=== PATIENT | male | born 1965 | race Native Hawaiian/Other Pacific Islander ===

== ENCOUNTER 2018-08-21 09:58 | Outpatient (CLI) | payer OTHER | END 2018-08-21 19:17 | disposition home or self-care (01) | LOC: RAD 09:58 | DX: R06.02 Shortness of breath (principal) ==

== ENCOUNTER 2019-09-05 09:45 | Day surgery (SDC) | payer OTHER ==
[2019-09-05 12:26] LABS: PLATELET COUNT 252 K/uL (142-355)
[2019-09-05 12:36] LABS: POTASSIUM 3.6 mmol/L (3.6-5.2)
== END 2019-09-05 13:35 | disposition home or self-care (01) ==
LOC: OR 09:45
PROVIDERS: Internal Medicine Gastroenterology
PROC: 0DB38ZZ Excision of Lower Esophagus, Via Natural or Artificial Opening Endoscopic (ICD-10-PCS; principal; 2019-09-05)
PROC: 0DB68ZZ Excision of Stomach, Via Natural or Artificial Opening Endoscopic (ICD-10-PCS; 2019-09-05)
PROC: 0D738ZZ Dilation of Lower Esophagus, Via Natural or Artificial Opening Endoscopic (ICD-10-PCS; 2019-09-05)
DX: K22.70 Barrett's esophagus without dysplasia (principal); K29.50 Unspecified chronic gastritis without bleeding; K22.2 Esophageal obstruction; R13.19 Other dysphagia; K21.0 Gastro-esophageal reflux disease with esophagitis; R10.13 Epigastric pain; R11.2 Nausea with vomiting, unspecified
CPT/HCPCS: 80053; 85027; J2370; J2704

== ENCOUNTER 2022-10-08 10:24 | Emergency (ER) | payer OTHER ==
[~2022-10-08] VITALS: Ht 167.6 cm; Wt 68.0 kg
[2022-10-08 10:30] VITALS: TEMP 98.5
[2022-10-08 12:12] VITALS: BP 125/78
== END 2022-10-08 12:12 | disposition home or self-care (01) ==
LOC: ED 10:24
DX: M25.462 Effusion, left knee (principal); M25.562 Pain in left knee; W19.XXXA Unspecified fall, initial encounter; Y99.0 Civilian activity done for income or pay
CPT/HCPCS: 96372; 99283; J1100; J1885